=== PATIENT | male | born 1995 | race Caucasian/White ===

== ENCOUNTER 2024-11-17 02:03 | Emergency (ER) | payer BC ==
[2024-11-17] MEDS ORDERED: methylPREDNISolone Sod Succ/PF 125 MG/2 ML VIAL ONE (02:57)
[2024-11-17] MEDS ORDERED: Acetaminophen 500 MG TAB ONE (02:57)
[2024-11-17] MEDS ORDERED: Ipratropium/Albuterol 3 ML NEB ONE (02:58)
[2024-11-17] MEDS ORDERED: Ketorolac Tromethamine 30 MG (1 mL) VIAL ONE (03:01)
[2024-11-17 03:04] LABS: #Basophils 0.05 10x3/uL (0.0-0.2); #Eosinophils Less than 0.03 10x3/uL (0.0-0.7); %Basophils 0.5 % (0.0-1.0); %Eosinophils 0.1 % (0.0-10.0); %Lymphocytes 6.3 % (21.0-51.0); %Monocytes 13.8 % (0.0-10.0); Hematocrit 42.8 % (42.0-52.0); Hemoglobin 14.8 g/dL (14.0-18.0); Mean Corpuscular HGB CONC 34.6 g/dL (32.0-36.0); Mean Corpuscular Hemoglobin 31.3 pg (27.0-31.0); Mean Corpuscular Volume 90.5 fL (78.0-98.0); Mean Platelet Volume 10.6 fL (7.4-10.4); Platelet Count 251 10x3/uL (130-400); RBC Distribution Width 13.2 % (11.5-14.5); Red Blood Cell (RBC) Count 4.73 mill/uL (4.70-6.10)
[2024-11-17 03:30] LABS: Troponin I Less than 0.010 ng/mL (< 0.028)
[2024-11-17 04:25] LABS: ALT (SGPT) 35 U/L (8-55); AST (SGOT) 25 U/L (5-34); Albumin 4.1 g/dL (3.5-5.0); Alkaline Phosphatase 67 U/L (40-110); Anion Gap 14 mmol/L (10-20); BUN (Urea Nitrogen) 15 mg/dL (8.9-20.6); Bilirubin, Total 0.5 mg/dL (0.2-1.2); Calc. Creatinine Clearance 0 mL/min (70-130); Calcium 9.6 mg/dL (7.8-10.44); Carbon Dioxide 21 mmol/L (22-29); Chloride 109 mmol/L (98-107); Estimated GFR 119; Globulin 3.3 g/dL (2.4-3.5); Glucose 113 mg/dL (70-105); Potassium 3.3 mmol/L (3.5-5.1); Protein, Total 7.4 g/dL (6.0-8.3); Sodium 141 mmol/L (136-145)
== END 2024-11-17 07:26 | disposition short-term general hospital (02) ==
LOC: ERS 02:03
DX: J10.1 Influenza due to other identified influenza virus with other respiratory manifestations (principal); J45.909 Unspecified asthma, uncomplicated; Z79.899 Other long term (current) drug therapy
CPT/HCPCS: 36415; 71045; 80053; 83605; 84484; 85025; 87040; 87149; 87428; 93005; 96361; 96374; 96375; J1885; J2919; J7620